=== PATIENT | male | born 1990 | race Hispanic/Latino ===

== ENCOUNTER 2021-08-09 13:19 | Emergency (ER) | payer SELFPAY ==
[2021-08-09 14:38] LABS: Absolute Lymphocytes (CBC) 1.3 K/uL (0.7-4.9); Hematocrit 45.2 % (39.6-49.0); Lymphocytes % 14.1 % (15.3-44.8); MPV 9.1 fL (7.6-11.3); RBC Red Blood Cell Count 4.99 M/uL (4.33-5.43)
[2021-08-09] MEDS ORDERED: LORAZEPAM 1 MG TABLET ONE (14:47)
[2021-08-09 15:25] LABS: BUN Blood Urea Nitrogen 10 mg/dL (7-18); Bicarbonate 28 mmol/L (21-32); Glucose Level 96 mg/dL (74-106); Potassium 3.4 mmol/L (3.5-5.1); Sodium Level 139 mmol/L (136-145); Troponin High Sensitivity 4.9 pg/mL (<58.9)
[2021-08-09 15:46] LABS: SARS-COV-2 RT PCR NEGATIVE (NEGATIVE)
--- NOTE | 2021-08-09 16:37 | ER ---
Nurse's Notes [facility] Name: Brant Garcia Age: 30 yrs Sex: Male : 1990 Arrival Date: 08/09/2021 Time: 13:20 Bed 13 Private MD: Diagnosis: Chest pain, unspecified;Adjustment disorder with anxiety Presentation: 08/09 13:35 Chief complaint: Friend and/or Co-Worker states: Pt started having chest pain and SOB ab2 around 1:30pm. Pt states pain has gotten better but is still hurting. Pt states his arms feel numb. Denies any weakness. Pt also c/o headache. Chief complaint:. Coronavirus screen: Vaccine status: Patient reports receiving the 2nd dose of the covid vaccine. Client denies travel out of the [place] in the last 14 days. At this time, the client does not indicate any symptoms associated with coronavirus-19. Ebola Screen: Patient negative for fever greater than or equal to 101.5 degrees Fahrenheit, and additional compatible Ebola Virus Disease symptoms Patient denies exposure to infectious person. Patient denies travel to an Ebola-affected area in the 21 days before illness onset. No symptoms or risks identified at this time. Initial Sepsis Screen: Does the patient meet any 2 criteria? No. Patient's initial sepsis screen is negative. Does the patient have a suspected source of infection? No. Patient's initial sepsis screen is negative. Risk Assessment: Do you want to hurt yourself or someone else? Patient reports no desire to harm self or others. Onset of symptoms is unknown. 13:35 Method Of Arrival: Ambulatory ab2 13:35 Acuity: RASHAWN 3 ab2 Triage Assessment: 13:37 General: Appears in no apparent distress. comfortable, Behavior is calm, cooperative, ab2 appropriate for age. Pain: Complains of pain in head and chest Pain currently is 8 out of 10 on a pain scale. Cardiovascular: Reports chest pain, shortness of breath, Rhythm is sinus rhythm. Respiratory: Airway is patent Respiratory effort is even, unlabored, Respiratory pattern is regular, symmetrical. Historical: - Allergies: 13:37 No Known Allergies; ab2 - PMHx: 13:37 Anxiety; ab2 - PSHx: 13:37 None; ab2 - Immunization history:: Adult Immunizations up to date. - Social history:: Smoking status: Patient denies any tobacco usage or history of. - Family history:: not pertinent. - Hospitalizations: : No recent hospitalization is reported. Screenin:52 Abuse screen: Denies threats or abuse. Nutritional screening: No deficits noted. vg1 Tuberculosis screening: No symptoms or risk factors identified. Fall Risk No fall in past 12 months (0 pts). No secondary diagnosis (0 pts). IV access (20 points). Ambulatory Aid- None/Bed Rest/Nurse Assist (0 pts). Gait- Normal/Bed Rest/Wheelchair (0 pts) Mental Status- Oriented to own ability (0 pts). Total Onofre Fall Scale indicates No Risk (0-24 pts). Assessment: 14:50 General: Appears in no apparent distress. comfortable, Behavior is calm, cooperative. vg1 Pain: Complains of pain in head and chest Pain does not radiate. Pain currently is 0 out of 10 on a pain scale. at worst was 10 out of 10 on a pain scale. Pain began 1 hour ago. Neuro: Level of Consciousness is awake, alert, obeys commands, Oriented to person, place, time, situation, Reports headache numbness in right arm, left arm, right leg and left leg. Cardiovascular: Patient's skin is warm and dry. Respiratory: Airway is patent Respiratory effort is even, unlabored. GI: Patient currently denies nausea, vomiting. : No signs and/or symptoms were reported regarding the genitourinary system. EENT: No signs and/or symptoms were reported regarding the EENT system. Derm: Skin is intact, is healthy with good turgor. Musculoskeletal: Circulation, motion, and sensation intact. 15:50 Reassessment: Patient appears in no apparent distress at this time. No changes from vg1 previously documented assessment. Patient and/or family updated on plan of care and expected duration. Pain level reassessed. Patient is alert, oriented x 3, equal unlabored respirations, skin warm/dry/pink. Patient denies pain at this time. Patient states feeling better. 16:50 Reassessment: Patient appears in no apparent distress at this time. No changes from vg1 previously documented assessment. Patient and/or family updated on plan of care and expected duration. Pain level reassessed. Patient is alert, oriented x 3, equal unlabored respirations, skin warm/dry/pink. Vital Signs: 13:35 BP 156 / 91; Pulse 83; Resp 17; Temp 98.7(TE); Pulse Ox 100% ; Weight 91.63 kg; Height ab2 5 ft. 8 in. (172.72 cm); Pain 8/10; 14:25 BP 153 / 89; Pulse 78; Resp 18; Temp 97.2; Pulse Ox 100% on R/A; kj1 14:52 BP 138 / 84; Pulse 92; Resp 16; Pulse Ox 100% ; vg1 15:00 BP 135 / 86; Pulse 80; Resp 17; Pulse Ox 96% on R/A; vg1 15:45 BP 137 / 87; Pulse 90; Resp 17; Pulse Ox 99% ; vg1 13:35 Body Mass Index 30.71 (91.63 kg, 172.72 cm) ab2 ED Course: 13:20 Patient arrived in ED. as 13:37 Triage completed. ab2 13:38 Arm band placed on left wrist. ab2 13:58 Chris Jones MD is Attending Physician. rn 14:17 Sunni Mckeon RN is Primary Nurse. vg1 14:28 Initial lab(s) drawn, by wa, sent to lab. Inserted saline lock: 20 gauge in right kj1 antecubital area, using aseptic technique. Blood collected. 14:52 Patient has correct armband on for positive identification. Bed in low position. Call vg1 light in reach. Side rails up X 1. cafeteria monitor on. Pulse ox on. NIBP on. 14:52 Patient maintains SpO2 saturation greater than 95% on room air. vg1 15:56 XRAY Chest (1 view) In Process Unspecified. EDMS 17:25 No provider procedures requiring assistance completed. IV discontinued, intact, vg1 bleeding controlled, No redness/swelling at site. Pressure dressing applied. Administered Medications: 14:50 Drug: Ativan (LORazepam) 1 mg Route: PO; vg1 16:19 Follow up: Response: No adverse reaction; Marked relief of symptoms vg1 Outcome: 16:36 Discharge ordered by . rn 17:25 Discharged to home ambulatory, with family. vg1 17:25 Condition: good 17:25 Discharge instructions given to patient, family, Instructed on discharge instructions, follow up and referral plans. Demonstrated understanding of instructions, follow-up care. 17:25 Patient left the ED. vg1 Signatures: Dispatcher [employer] Vandana Ricks Roman, MD MD rn Jackson, Kaylen glover1 Sunni Mckeon RN RN vg1 Richy Grider
--- NOTE | 2021-08-09 16:37 | EDPHYS ---
Physician Documentation [facility] Name: Brant Garcia Age: 30 yrs Sex: Male : 1990 Arrival Date: 08/09/2021 Time: 13:20 Bed 13 Private MD: ED Physician Chris Jones HPI: 08/09 14:43 This 30 yrs old Male presents to ER via Ambulatory with complaints of Chest rn Pain, anxiety. 14:43 The patient or guardian reports chest pain that is located primarily in the substernal rn area. The pain radiates to the left arm. Associated signs and symptoms: Pertinent positives: dizziness, palpitations, Pertinent negatives: abdominal pain, cough, syncope. The chest pain is described as aching. Duration: The patient or guardian reports multiple episodes, that are intermittent. Modifying factors: The symptoms are alleviated by nothing. the symptoms are aggravated by anxiety. 14:49 Severity of pain: At its worst the pain was moderate in the emergency department the rn pain has improved. The patient has experienced similar episodes in the past. The patient has not recently seen a physician. Pt reports has hx of anxiety, has had for years, has also had chest pain and palpitations with his anxiety for years with multiple visits and doctor visits. Reports recently left him, is having trouble sleeping, and having increased stress with ensuing panic attacks. Had a panic attack today but chest pain was worse assoc with tingling of arms and legs. Took a medication he had been prescribed for anxiety in past and already feeling better. Plans on making appt with psychiatrist. . Historical: - Allergies: 13:37 No Known Allergies; ab2 - PMHx: 13:37 Anxiety; ab2 - PSHx: 13:37 None; ab2 - Immunization history:: Adult Immunizations up to date. - Social history:: Smoking status: Patient denies any tobacco usage or history of. - Family history:: not pertinent. - Hospitalizations: : No recent hospitalization is reported. ROS: 14:49 Constitutional: Negative for fever, chills, and weight loss, Eyes: Negative for injury, rn pain, redness, and discharge, Neck: Negative for injury, pain, and swelling, Cardiovascular: Negative for edema Respiratory: Negative for shortness of breath, cough, wheezing, and pleuritic chest pain, Abdomen/GI: Negative for abdominal pain, nausea, vomiting, diarrhea, and constipation, Back: Negative for injury and pain, MS/Extremity: Negative for injury and deformity, Skin: Negative for injury, rash, and discoloration, Neuro: Negative for headache, weakness, and seizure. Exam: 14:49 Constitutional: This is a well developed, well nourished patient who is awake, alert, rn and in no acute distress. Head/Face: Normocephalic, atraumatic. Eyes: Periorbital areas with no swelling, redness, or edema. Neck: Trachea midline, no masses palpated, and no cervical lymphadenopathy. Supple, full range of motion without nuchal rigidity, or vertebral point tenderness. No Meningismus. Cardiovascular: Regular rate and rhythm. No pulse deficits. Respiratory: No increased work of breathing, no retractions or nasal flaring. Abdomen/GI: Soft, non-tender Skin: Warm, dry with normal turgor. Normal color with no rashes, no lesions, and no evidence of cellulitis. MS/ Extremity: Pulses equal, no cyanosis. Neurovascular intact. Full, normal range of motion. Equal circumference. Neuro: Awake and alert, GCS 15, oriented to person, place, time, and situation. Cranial nerves II-XII grossly intact. Motor strength 5/5 in all extremities. Sensory grossly intact. Cerebellar exam normal. Normal gait. Vital Signs: 13:35 BP 156 / 91; Pulse 83; Resp 17; Temp 98.7(TE); Pulse Ox 100% ; Weight 91.63 kg; Height ab2 5 ft. 8 in. (172.72 cm); Pain 8/10; 14:25 BP 153 / 89; Pulse 78; Resp 18; Temp 97.2; Pulse Ox 100% on R/A; kj1 14:52 BP 138 / 84; Pulse 92; Resp 16; Pulse Ox 100% ; vg1 15:00 BP 135 / 86; Pulse 80; Resp 17; Pulse Ox 96% on R/A; vg1 15:45 BP 137 / 87; Pulse 90; Resp 17; Pulse Ox 99% ; vg1 13:35 Body Mass Index 30.71 (91.63 kg, 172.72 cm) ab2 MDM: 13:58 Patient medically screened. rn 16:34 Differential diagnosis: acute myocardial infarction, acute pericarditis, anxiety, rn coronary artery disease costochondritis, gastroesophageal reflux disease (GERD), pleurisy, pneumothorax, pulmonary embolus. HEART Score: History: Slightly Suspicious (0), ECG: Normal (0), Age: < or = 45 years (0), Risk Factors: No Risk Factors Known (0), Troponin: < or = 1 x Normal Limit (0), Total Score = 0. Data reviewed: vital signs, nurses notes, lab test result(s), EKG, radiologic studies, plain films, and as a result, I will discharge patient. Counseling: I had a detailed discussion with the patient and/or guardian regarding: the historical points, exam findings, and any diagnostic results supporting the discharge/admit diagnosis, lab results, radiology results, the need for outpatient follow up, to return to the emergency department if symptoms worsen or persist or if there are any questions or concerns that arise at home. Response to treatment: the patient's symptoms have markedly improved after treatment, and as a result, I will discharge patient. Special discussion: Based on the patient's history, exam, and Dx evaluation, there is no indication for emergent intervention or inpatient Tx. It is understood by the patient/guardian that if the Sx's persist or worsen they need to return immediately for re-evaluation. I discussed with the patient/guardian in detail that at this point there is no indication for admission to the hospital. It is understood, however, that if the symptoms persist or worsen the patient needs to return immediately for re-evaluation. 08/09 14:07 Order name: Basic Metabolic Panel; Complete Time: 15:54 rn 08/09 14:07 Order name: CBC with Diff; Complete Time: 15:54 rn 08/09 14:07 Order name: D-Dimer; Complete Time: 15:54 rn 08/09 14:07 Order name: Troponin HS; Complete Time: 15:54 rn 08/09 14:07 Order name: XRAY Chest (1 view) rn 08/09 14:28 Order name: COVID-19/FLU A+B (Document "Date of Onset" if Symptomatic); Complete Time: iw 15:54 08/09 13:38 Order name: EKG - Nurse/Tech; Complete Time: 13:38 ab2 08/09 14:07 Order name: EKG; Complete Time: 14:08 rn 08/09 14:07 Order name: Cardiac monitoring; Complete Time: 14:41 rn 08/09 14:07 Order name: EKG - Nurse/Tech; Complete Time: 14:41 rn 08/09 14:07 Order name: IV Saline Lock; Complete Time: 14:50 rn 08/09 14:07 Order name: Labs collected and sent; Complete Time: 14:50 rn 08/09 14:07 Order name: O2 Per Protocol; Complete Time: 14:41 rn 08/09 14:07 Order name: O2 Sat Monitoring; Complete Time: 14:41 rn Administered Medications: 14:50 Drug: Ativan (LORazepam) 1 mg Route: PO; vg1 16:19 Follow up: Response: No adverse reaction; Marked relief of symptoms vg1 Disposition Summary: 08/09/21 16:36 Discharge Ordered Location: Home rn Problem: new rn Symptoms: have improved rn Condition: Stable rn Diagnosis - Chest pain, unspecified rn - Adjustment disorder with anxiety rn Followup: rn - With: Private Physician - When: As needed - Reason: Recheck today's complaints, Re-evaluation by your physician Discharge Instructions: - Discharge Summary Sheet rn - Panic Attack rn - Nonspecific Chest Pain, Adult rn Forms: - Medication Reconciliation Form rn - Thank You Letter rn - Antibiotic collections attorney - Prescription Opioid Use rn Signatures: Dispatcher [employer] Chris Wright MD MD rn Garcia, Victoria, RN RN vg1 Richy Grider2
--- NOTE | 2021-08-09 17:21 | RAD REPORT ---
EXAM DESCRIPTION: RAD - Chest Single View - 08/09/2021 3:55 pm CLINICAL HISTORY: CHEST PAIN COMPARISON: None TECHNIQUE: AP portable chest image was obtained 08/09/2021 3:55 pm . FINDINGS: Lung volumes are low. No significant failure or volume overload. Heart and vasculature are normal. No measurable pleural effusion and no pneumothorax. No acute bony abnormality seen. No acute aortic findings suspected. Final report was delayed due to technical issues with the PACs IT systems. IMPRESSION: No acute cardiopulmonary process.
[2021-08-09 17:46] VITALS: TEMP 97.2
[2021-08-09 17:50] VITALS: BP 137/87; O2SAT 99
--- NOTE | 2021-08-12 11:20 | EKG ---
Test Date: 2021-08-09 Test Time: 13:29:58 [employer] Consultant: MEASUREMENT RESULTS: Intervals: Rate: 71 WY: 148 QRSD: 90 QT: 350 QTc: 380 Buckner: P: 59 WY: 148 QRS: 65 T: 36 INTERPRETIVE STATEMENTS: Normal sinus rhythm Normal ECG No previous ECG available for comparison Electronically Signed On 08-12-21 11:13:32 CDT by Woody Yo
--- NOTE | 2021-08-13 08:34 | EKG ---
Test Date: 2021-08-09 Test Time: 14:17:33 [employer] Lining Stitcher: JESSICA MEASUREMENT RESULTS: Intervals: Rate: 79 ID: [id number] QRSD: 90 QT: 346 QTc: 396 Kingsley: P: 67 ID: [id number] QRS: 66 T: 39 INTERPRETIVE STATEMENTS: Normal sinus rhythm Normal ECG Compared to ECG 08/09/2021 13:29:58 No significant changes Electronically Signed On 08-13-21 08:28:32 CDT by Woody Yo
== END 2021-08-09 17:25 | disposition home or self-care (01) ==
LOC: ER 13:19
DX: F43.22 Adjustment disorder with anxiety (principal); Z20.822 Contact with and (suspected) exposure to COVID-19
CPT/HCPCS: 0240U; 36415; 71045; 80048; 84484; 85025; 85379; 93005; 99285